=== PATIENT | male | born 1990 ===

== ENCOUNTER 2017-12-11 23:22 | Emergency (ER) | payer MEDICAID, OTHER ==
[2017-12-11 23:33] VITALS: BP 147/74; PULSE 97; RESP 16; TEMP 98; O2SAT 98
--- NOTE | 2017-12-11 23:59 | ED PDOC ---
HPI: Psych/Substance Abuse Time Seen by Provider: 12/11/17 23:44 Chief Complaint (Nursing): Psychiatric Evaluation Chief Complaint (Provider): Psychiatric Evaluation History Per: Patient, EMS History/Exam Limitations: no limitations Onset/Duration Of Symptoms: Other (prior to arrival) Current Symptoms Are (Timing): Still Present Additional Complaint(s): 27 year old male, who was brought to the ED by EMS due to bizarre and erratic behavior prior to arrival. According to patient, he was sitting at [employer] minding his own business and using instant messaging, not speaking to anyone. Police state patient was threatening another person, but patient denies that happened. Denies suicidal or homicidal ideations. Patient is alert and oriented. Denies drug or alcohol use. Patient has no complaints at this time. PMD: Provider TBD Past Medical History Reviewed: Historical Data, Nursing Documentation, Vital Signs Vital Signs: Last Vital Signs Temp 98.0 F 12/11/17 23:26 Pulse 97 H 12/11/17 23:26 Resp 16 12/11/17 23:26 BP 147/74 12/11/17 23:26 Pulse Ox 98 12/11/17 23:26 - Medical History PMH: Mitral Valve Prolapse (uncorrected) - Surgical History Surgical History: Appendectomy - Family History Family History: States: Unknown Family Hx - Social History Alcohol: None Drugs: Denies - Allergies Allergies/Adverse Reactions: Allergies Allergy/AdvReac Type Severity Reaction Status Date / Time No Known Allergies Allergy Verified 02/24/15 15:25 Review of Systems ROS Statement: Except As Marked, All Systems Reviewed And Found Negative Psych: Negative for: Suicidal ideation Physical Exam - Reviewed Nursing Documentation Reviewed: Yes Vital Signs Reviewed: Yes - Physical Exam Appears: Positive for: Well, Non-toxic, No Acute Distress Head Exam: Positive for: ATRAUMATIC, NORMAL INSPECTION, NORMOCEPHALIC Skin: Positive for: Normal Color, Warm, Dry. Negative for: Rash Eye Exam: Positive for: EOMI, Normal appearance, PERRL Neck: Positive for: Normal, Painless ROM, Supple Cardiovascular/Chest: Positive for: Regular Rate, Rhythm. Negative for: Murmur Respiratory: Positive for: Normal Breath Sounds. Negative for: Respiratory Distress Gastrointestinal/Abdominal: Positive for: Normal Exam, Soft. Negative for: Tenderness Back: Positive for: Normal Inspection. Negative for: L CVA Tenderness, R CVA Tenderness, Vertebral Tenderness Extremity: Positive for: Normal ROM. Negative for: Pedal Edema, Deformity Neurologic/Psych: Positive for: Alert, Oriented (x3), Mood/Affect (Verbose). Negative for: Motor/Sensory Deficits, Aphasia - ECG O2 Sat by Pulse Oximetry: 98 (RA) Pulse Ox Interpretation: Normal Medical Decision Making Medical Decision Making: Time: 23:50 Initial Impression: Bipolar disorder Plan: --Crisis evaluation --Reevaluation Time: 02:15 --Upon provider evaluation patient is medically stable, cleared by crisis psychiatrically, and requires no further treatment in the ED at this time Counseling was provided and all questions were answered regarding diagnosis and need for [facility] with [facility]. There is agreement to discharge plan. Return if symptoms persist or worsen. Scribe Attestation: Documented by Tommy Bales, acting as a scribe for Hammad Ramsey MD. Provider Scribe Attestation: All medical record entries made by the Scribe were at my direction and personally dictated by me. I have reviewed the chart and agree that the record accurately reflects my personal performance of the history, physical exam, medical decision making, and the department course for this patient. I have also personally directed, reviewed, and agree with the discharge instructions and disposition. Disposition - Clinical Impression Clinical Impression: Bipolar disorder, unspecified - Patient ED Disposition Is Patient to be Admitted: No Counseled Patient/Family Regarding: Diagnosis, Need For Followup - Disposition Referrals: [facility] [Outside] Disposition Time: 02:15 Condition: STABLE Instructions: Suicide Prevention for Adults (DC) Forms: [employer] ([place]ian)
== END 2017-12-12 02:34 | disposition home or self-care (01) ==
LOC: H.ER 23:22
DX: F31.9 Bipolar disorder, unspecified (principal); I34.1 Nonrheumatic mitral (valve) prolapse